=== PATIENT | female | born 1960 | race Caucasian/White ===

== ENCOUNTER 2020-10-05 08:38 | Outpatient (CLI) | payer OTHER, SELFPAY ==
--- NOTE | 2020-10-05 08:47 | EST_ITS ---
Patient Info Name: Sloan Abdalla Age: 60 years : 1960 Gender: Female Ht: 64 in Wt: 120 lbs BSA: 1.57 m2 Exam Date: 10/05/2020 8:57 AM Exam Location: [facility] Stress Patient Status: Outpatient Admit Date: 10/05/2020 Staff Ordering Physician: Pati Tirado NP Attending Provider: Pati Tirado NP Exercise Technologist: Ana Valverde RDCS Exercise Physician: Hector Martin DO Exam Type: CA stress test treadmill Study Info Indications R06.02 - Shortness of breath A treadmill exercise stress test was performed. Summary 1. 1. Negative Tong exercise stress test for ischemic ST changes by ECG criteria. 2. 2. Poor functional capacity, achieving 4 METs of workload. 3. 3. Baseline hypertension with hypertensive response to exercise. 4. 4. Rapid HR response to exercise. 5. 5. Appropriate HR recovery at 1 minute post exercise. 6. 6. No imaging with stress testing. 7. 7. Patient informed of the above results. Protocol: Tong Stress ECG Details Stage: REST Duration (min): 6 min : 10 sec Speed (mph): 0.0 Grade (%): 0 HR (bpm): 80 SBP (mmHg): 176 DBP (mmHg): 92 METS: --- Stage: REST Duration (min): 9 min : 36 sec Speed (mph): 0.0 Grade (%): 0 HR (bpm): 87 SBP (mmHg): 176 DBP (mmHg): 92 METS: --- Stage: STAGE 1 Duration (min): 1 min : 0 sec Speed (mph): 1.7 Grade (%): 10 HR (bpm): 113 SBP (mmHg): 176 DBP (mmHg): 92 METS: --- Stage: STAGE 1 Duration (min): 2 min : 0 sec Speed (mph): 1.7 Grade (%): 10 HR (bpm): 135 SBP (mmHg): 176 DBP (mmHg): 92 METS: --- Stage: STAGE 1 Duration (min): 3 min : 0 sec Speed (mph): 1.7 Grade (%): 10 HR (bpm): 168 SBP (mmHg): 176 DBP (mmHg): 92 METS: --- Stage: RECOVERY Duration (min): 0 min : 59 sec Speed (mph): 0.0 Grade (%): 0 HR (bpm): 195 SBP (mmHg): 241 DBP (mmHg): 123 METS: --- Stage: RECOVERY Duration (min): 1 min : 59 sec Speed (mph): 0.0 Grade (%): 0 HR (bpm): 125 SBP (mmHg): 241 DBP (mmHg): 123 METS: --- Stage: RECOVERY Duration (min): 2 min : 59 sec Speed (mph): 0.0 Grade (%): 0 HR (bpm): 117 SBP (mmHg): 216 DBP (mmHg): 116 METS: --- Stage: RECOVERY Duration (min): 3 min : 59 sec Speed (mph): 0.0 Grade (%): 0 HR (bpm): 100 SBP (mmHg): 216 DBP (mmHg): 116 METS: --- Stage: RECOVERY Duration (min): 4 min : 59 sec Speed (mph): 0.0 Grade (%): 0 HR (bpm): 100 SBP (mmHg): 205 DBP (mmHg): 93 METS: --- Stage: RECOVERY Duration (min): 5 min : 59 sec Speed (mph): 0.0 Grade (%): 0 HR (bpm): 88 SBP (mmHg): 205 DBP (mmHg): 93 METS: --- Stage: RECOVERY Duration (min): 6 min : 59 sec Speed (mph): 0.0 Grade (%): 0 HR (bpm): 86 SBP (mmHg): 177 DBP (mmHg): 97 METS: --- Sta
== END 2020-10-05 08:39 | disposition home or self-care (01) ==
PROVIDERS: PCP Family Medicine; Visit Provider Nurse Practitioner
DX: R06.02 Shortness of breath (principal)
CPT/HCPCS: 93017

== ENCOUNTER 2020-10-15 17:43 | Outpatient (CLI) | payer OTHER, SELFPAY | END 2020-10-15 17:44 | disposition home or self-care (01) | LOC: ANHCOVIDVC 17:43 | PROVIDERS: PCP Family Medicine; Visit Provider Nurse Practitioner | DX: Z23 Encounter for immunization (principal) | CPT/HCPCS: 0001A; 91300 ==

== ENCOUNTER 2020-11-05 17:39 | Outpatient (CLI) | payer OTHER, SELFPAY | END 2020-11-05 17:40 | disposition home or self-care (01) | LOC: ANHCOVIDVC 17:39 | PROVIDERS: PCP Family Medicine; Visit Provider Nurse Practitioner | DX: Z23 Encounter for immunization (principal) | CPT/HCPCS: 0002A; 91300 ==

== ENCOUNTER 2022-05-15 15:03 | Emergency (ER) | payer OTHER, SELFPAY ==
--- NOTE | ~2022-05-15 | XR_ITS ---
EXAMINATION: XR ankle LT min 3V DATE: 05/15/2022 15:26 INDICATION: Left ankle swelling. TECHNIQUE: 4 views of left ankle were obtained. COMPARISON: None. FINDINGS: Bone alignment is normal. No fracture. Joint spaces are well maintained. There is ankle sof t tissue swelling. IMPRESSION: 1. No fracture. Reviewed, dictated and finalized at location A. IMPRESSION: 1. No fracture.
[2022-05-15 15:12] VITALS: BP 124/96; PULSE 90; RESP 16; TEMP 37.3; O2SAT 100
--- NOTE | 2022-05-15 15:12 | ED.LOWEXIN ---
HPI - Extremity Injury (Lower) General Chief Complaint: Extremity Injury, Lower Stated Complaint: lt ankle injury Time Seen by Provider: 05/15/22 15:20 Source: patient Mode of arrival: ambulatory Limitations: no limitations History of Present Illness HPI Narrative: 61 y/o female presented for c/o left ankle and foot swelling for about 6 days. Denies injury or excessive use. States she felt mild pain at onset, then the next day she was 'hobbling.' States swelling has worsened but pain is slightly better since onset. Pain worse with walking and movement. Denies numbness, tingling or weakness. She has applied ice and is taking ibuprofen. Related Data Home Medications Medication Instructions Recorded Confirmed ascorbate calcium (vitamin C) 500 500 mg PO DAILY 02/13/20 05/15/22 mg tablet multivitamin 1 tablet PO DAILY 02/13/20 05/15/22 omega-3 fatty acids 1,000 mg 1,000 mg PO DAILY 02/13/20 05/15/22 capsule (Fish Oil Concentrate) Allergies Allergy/AdvReac Type Severity Reaction Status Date / Time [id number] Reductase Allergy Unknown Muscle pain Verified 05/15/22 15:10 Inhibitor [[id number]-[id number]-Ttj Reductase Inhibitor] Sulfa (Sulfonamide Allergy Unknown swollen Verified 05/15/22 15:10 Antibiotics) lips/ Face Review of Systems Review of Systems: CONSTITUTIONAL: Denies body aches, fever, chills EYES: Denies visual changes ENT: Denies rhinorrhea, congestion CARDIOVASCULAR: Denies chest pain, palpitations, or edema. RESPIRATORY: Denies cough or dyspnea. SKIN: Denies rash or wounds. MUSCULOSKELETAL: Reports ankle pain/swelling NEUROLOGIC: Denies headache, numbness, tingling, or weakness. All systems reviewed & are unremarkable except as noted in HPI and below [facility] Past Medical History Medical History COPD (chronic obstructive pulmonary disease) Essential (primary) hypertension Hyperlipidemia Osteoporosis Surgical History Surgical History History of hysterectomy Hx of colonoscopy (~05/2017) Dr Garcia, small polyps, repeat 10 years Family History Family History Mother Family history of chronic obstructive pulmonary disease Family history of congestive heart failure Sibling Carcinoma of colon Family history of seizure disorder Social History Social History Smoking status: Current some day smoker Second hand tobacco smoke exposure: Yes Smoking end date: 08/10/15 Alcohol intake: current Comments At time of signature, I have reviewed and agree with nursing past medical, surgical, social and family history unless otherwise noted. Please see nursing chart for further information. There is no relevant family history pertinent to the presenting complaint Exam Narrative: GENERAL: Well-appearing CHEST: Speaks in full sentences. No respiratory distress. HEART: Regular rate and rhythm. Normal and equal peripheral pulses. EXTREMITIES: Moderate swelling to Left lateral ankle, mild erythema and tenderness to palpation. Foot has normal strength and sensation, normal range of motion. No bruising or open wounds or obvious deformity; pulse palpable and equal bilaterally, skin warm, dry, pink. Capillary refill less than 3 seconds. Walks with limp. SKIN: Warm, dry, no rash. NEURO: Alert and oriented x3. PSYCH: Normal mood and affect Course Course Emergency Course: Patient is aware of diagnosis, understands and agrees to treatment plan. Anticipatory guidance given. Patient agrees to follow-up as directed and is aware of reasons to seek care at the emergency department. Portions of this record may have been created with voice recognition software Level of Care: Express Care Visit Vital Signs Vital signs: Vital Signs Temperature 99.2 F 05/15/22 15:1
== END 2022-05-15 15:45 | disposition home or self-care (01) ==
PROVIDERS: Emergency Provider Nurse Practitioner Family; PCP Nurse Practitioner
DX: M25.472 Effusion, left ankle (principal); Z87.891 Personal history of nicotine dependence; J44.9 Chronic obstructive pulmonary disease, unspecified; I10 Essential (primary) hypertension; E78.5 Hyperlipidemia, unspecified; M81.0 Age-related osteoporosis without current pathological fracture
CPT/HCPCS: 73610; 99213; G0463

== ENCOUNTER 2024-11-08 12:53 | Outpatient (CLI) | payer OTHER, SELFPAY ==
--- NOTE | ~2024-11-08 | MM_ITS ---
EXAMINATION: MM screening thai BI w tho HISTORY: Screening TECHNIQUE: Craniocaudal and mediolateral oblique 3-D tomosynthesis images were obtained and synthetic 2-D images were generated. CAD analysis was submitted and interpreted. COMPARISON: No prior mammogram is available for comparison at this institution. BREAST PARENCHYMAL COMPOSITION: Not dense: There are scattered areas of fibroglandular density. FINDINGS: There is no evidence of suspicious mass, calcification, or architectural distortion to sugg est malignancy in either breast. There has been no suspicious interval change. IMPRESSION: 1. No mammographic evidence of malignancy. 2. Recommend routine screening mammography in one year. BI-RADS Category 1: Negative Reviewed, dictated and finalized at location A.
== END 2024-11-08 12:54 | disposition home or self-care (01) ==
LOC: MICIMG 12:53
PROVIDERS: PCP Family Medicine; Visit Provider Nurse Practitioner Family
DX: Z12.31 Encounter for screening mammogram for malignant neoplasm of breast (principal)
CPT/HCPCS: 77063; 77067